=== PATIENT | male | born 1985 | race Two or more races ===

== ENCOUNTER 2019-09-10 15:46 | Inpatient (IN) | payer OTHER ==
[~2019-09-10] VITALS: Ht 177.8 cm; Wt 83.9 kg
[2019-09-28] MEDS ORDERED: CIPRO500 MG (08:27)
[2019-09-28] MEDS ORDERED: CANNABIS MEDICINAL (08:28)
[2019-09-28] MEDS ORDERED: KETO10TA2 (08:30)
[2019-09-28] MEDS ORDERED: DICY20TA (08:30)
[2019-09-28] MEDS ORDERED: BIOTIN1 MG PO (08:33)
[2019-09-28] MEDS ORDERED: PRILOSEC10 MG PO (14:36)
[2019-09-28] MEDS ORDERED: PERCOCET 5-3251 EACH PO (14:36)
[2019-09-28] MEDS ORDERED: INTESTINEX680 M1 PO (14:36)
== END 2019-09-28 15:38 | disposition home or self-care (01) | DRG 334 ==
LOC: O/R 09-25 10:30 → SURH 09-25 10:30 → SURG 09-25 11:45 → SURH 09-25 15:21
PROVIDERS: ADMIT Surgery
PROC: 0DBP4ZZ Excision of Rectum, Percutaneous Endoscopic Approach (ICD-10-PCS; principal; 2019-09-25 12:30)
DX: K57.30 Diverticulosis of large intestine without perforation or abscess without bleeding (principal)